=== PATIENT | female | born 1950 | race African-American/Black ===

== ENCOUNTER 2023-12-18 10:14 | Inpatient (IN) | payer MEDICARE, BC ==
[~2023-12-18] VITALS: Ht 162.6 cm; Wt 52.7 kg
[2023-12-18 10:19] VITALS: O2SAT 99
[2023-12-18 10:47] LABS: BASOPHILS % 0.5 % (0.0-2.0); DIFFERENTIAL COMMENT 0; EOSINOPHILS % 1.2 % (0.0-5.0); HEMATOCRIT. 36.2 % (36.0-48.0); HEMOGLOBIN. 11.9 g/dL (12.0-16.0); MEAN CORPUSCULAR HEMOGLOBIN 25.8 pg (28.0-32.0); MEAN PLATELET VOLUME 8.7 fl (7.4-10.4); MONOCYTES % 6.3 % (2.0-8.0); PLATELET 259 x1000/uL (130-400); RED BLOOD CELL COUNT 4.64 mill/uL (4.2-5.4); RED CELL DISTRIBUTION WIDTH 13.7 % (11.6-14.6); WHITE BLOOD COUNT 7.2 x1000/uL (4.5-11.0)
[2023-12-18 11:17] LABS: ALANINE AMINOTRANSFERASE < 7 IU/L (10-49); ALBUMIN 4.7 g/dL (3.2-4.8); ASPARTATE AMINOTRANSFERASE 9 IU/L (<34); BILIRUBIN TOTAL 0.3 mg/dL (0.1-1.0); CALCIUM 9.3 mg/dL (8.7-10.4); CARBON DIOXIDE 25 mEq/L (21-32); CHLORIDE 102 mEq/L (98-107); CREATININE 0.7 mg/dL (0.6-1.0); GLUCOSE 135 mg/dL (70-105); POTASSIUM 3.5 mEq/L (3.5-5.1); PROTEIN TOTAL 7.5 g/dL (6.0-8.3); SODIUM 135 mEq/L (136-145); UREA NITROGEN BLOOD 11 mg/dL (9-23)
[2023-12-18] MEDS: MORPHINE SULFATE 4 MG/ML CPJ (NOT FOR IM USE) IV ONE (11:18)
[2023-12-18 11:36] LABS: TROPONIN I HIGH SENSITIVITY < 4 ng/L (3.0-34)
[2023-12-18] MEDS ORDERED: ACETAMINOPHEN 325MG TABLET PO PRN (21:15)
[2023-12-18] MEDS ORDERED: DOCUSATE SODIUM 100MG CAPSULE PO PRN (21:15)
[2023-12-18] MEDS ORDERED: ONDANSETRON HCL 4MG/2ML INJ IV PRN (21:15)
[2023-12-18] MEDS ORDERED: DEXTROSE 50% WATER 50ML SYRINGE IV PRN (21:15)
[2023-12-18] MEDS ORDERED: GUAIFENESIN 200MG/10ML SUGAR FREE UDC PO PRN (21:15)
[2023-12-18] MEDS ORDERED: IPRATROPIUM/ALBUTEROL 0.5-3(2.5)MG/3ML NEB HHN PRN (21:15)
[2023-12-18] MEDS ORDERED: METF-414 PO (21:29)
[2023-12-18] MEDS ORDERED: AMLO5TAB88 PO (21:29)
[2023-12-18] MEDS ORDERED: OMEP40CA20 PO (21:29)
[2023-12-18 21:38] LABS: IRON 35 ug/dL (50-170); TOTAL IRON BINDING CAPACITY 185 ug/dl (250-425)
[2023-12-18 22:00] VITALS: BP 104/60; PULSE 80; RESP 20; TEMP 97.3
[2023-12-18 22:01] LABS: FERRITIN 95 ng/mL (10-291); FOLIC ACID (FOLATE) SERUM 16.42 ng/mL (>5.38); VITAMIN B12 SERUM 457 pg/mL (211-911)
[2023-12-19] VITALS: BP 162/81; PULSE 88; RESP 18; TEMP 99.5
[2023-12-19] MEDS: CLONIDINE 0.1MG TABLET PO PRN (00:34)
[2023-12-19] MEDS: AMLODIPINE 5MG TABLET PO SCH (00:35)
[2023-12-19 02:02] LABS: D-DIMER 0.32 mg/L FEU (<0.50); PROTHROMBIN TIME 11.3 sec (9.6-11.0)
[2023-12-19 02:20] LABS: TROPONIN I HIGH SENSITIVITY < 4 ng/L (3.0-34)
[2023-12-19 04:00] VITALS: BP 97/53; PULSE 70; RESP 18; TEMP 97.5
[2023-12-19] MEDS: BLOOD SUGAR DIAGNOSTIC STRIP TEST SCH (06:28)
[2023-12-19] MEDS: INSULIN LISPRO 100 UNITS/ML SUBCUT SCH (06:28)
[2023-12-19 07:41] LABS: BASOPHILS % 0.4 % (0.0-2.0); DIFFERENTIAL COMMENT 0; EOSINOPHILS % 1.9 % (0.0-5.0); HEMATOCRIT. 34.1 % (36.0-48.0); HEMOGLOBIN. 11.4 g/dL (12.0-16.0); LYMPHOCYTES % 29.2 % (20.0-50.0); MEAN CORPUSCULAR HGB CONC 33.6 g/dL (31.0-37.0); MEAN CORPUSCULAR VOLUME 77.4 fL (81.0-99.0); MEAN PLATELET VOLUME 9.2 fl (7.4-10.4); MONOCYTES % 7.2 % (2.0-8.0); NEUTROPHILS % 61.3 % (40.0-76.0); PLATELET 259 x1000/uL (130-400); RED CELL DISTRIBUTION WIDTH 13.5 % (11.6-14.6); WHITE BLOOD COUNT 6.6 x1000/uL (4.5-11.0)
[2023-12-19 08:00] VITALS: BP 106/57; PULSE 78; RESP 18; TEMP 98.7
[2023-12-19 08:38] LABS: TROPONIN I HIGH SENSITIVITY < 4 ng/L (3.0-34)
[2023-12-19] MEDS: MAGNESIUM/ALUMINUM HYDROXIDE/SIMETHICONE 30ML UDC PO PRN (08:39)
[2023-12-19 09:03] LABS: ALANINE AMINOTRANSFERASE < 7 IU/L (10-49); ALBUMIN 4.4 g/dL (3.2-4.8); ASPARTATE AMINOTRANSFERASE 10 IU/L (<34); BILIRUBIN TOTAL 0.4 mg/dL (0.1-1.0); CARBON DIOXIDE 28 mEq/L (21-32); CHLORIDE 101 mEq/L (98-107); CHOLESTEROL 150 mg/dL (<200); CREATININE 0.6 mg/dL (0.6-1.0); GLUCOSE 103 mg/dL (70-105); HDL CHOLESTEROL 42 mg/dL (>65); LDL CHOLESTEROL 92 mg/dL (5-100); POTASSIUM 3.9 mEq/L (3.5-5.1); PROTEIN TOTAL 6.9 g/dL (6.0-8.3); SODIUM 135 mEq/L (136-145); THYROID STIMULATING HORMONE 0.97 uIU/mL (0.55-4.78); TRIGLYCERIDE 72 mg/dL (0-150); UREA NITROGEN BLOOD 11 mg/dL (9-23)
[2023-12-19 12:05] VITALS: BP 112/54; PULSE 72; RESP 20; TEMP 97.6
[2023-12-19 16:00] VITALS: BP 123/62; PULSE 77; RESP 20; TEMP 98.8
[2023-12-19 20:00] VITALS: BP 126/69; PULSE 82; RESP 18; TEMP 97.8
[2023-12-19] MEDS: FAMOTIDINE 20MG TABLET PO SCH (21:06)
[2023-12-20] VITALS: BP 113/53; PULSE 73; RESP 19; TEMP 97.6
[2023-12-20 04:00] VITALS: BP 130/67; PULSE 75; RESP 18; TEMP 98.3
[2023-12-20 06:36] LABS: HEMATOCRIT 33.5 % (36.0-48.0); HEMOGLOBIN 11.2 g/dL (12.0-16.0)
[2023-12-20 07:07] LABS: CALCIUM 8.9 mg/dL (8.7-10.4); CARBON DIOXIDE 28 mEq/L (21-32); CHLORIDE 100 mEq/L (98-107); CREATININE 0.7 mg/dL (0.6-1.0); GLUCOSE 106 mg/dL (70-105); POTASSIUM 3.9 mEq/L (3.5-5.1); SODIUM 134 mEq/L (136-145); UREA NITROGEN BLOOD 13 mg/dL (9-23)
[2023-12-20 08:00] VITALS: BP 127/85; PULSE 69; RESP 18; TEMP 98.4
[2023-12-20] MEDS: FERROUS SULFATE 325MG TABLET PO SCH (08:43)
[2023-12-20] MEDS ORDERED: FERR325T6 PO (10:19)
[2023-12-20 10:25] VITALS: BP 127/85; PULSE 69; TEMP 98
== END 2023-12-20 11:50 | disposition home or self-care (01) | DRG 392 ==
LOC: ER 10:14 → 5WST 12:13 → EDBEDREQ 12:16 → EDBEDREQTM 12:16 → 7WST 23:49
PROVIDERS: ADMIT Internal Medicine; ATTEND Internal Medicine
DX: K21.9 Gastro-esophageal reflux disease without esophagitis (principal); R68.84 Jaw pain; D50.9 Iron deficiency anemia, unspecified; R07.89 Other chest pain; I10 Essential (primary) hypertension; E11.9 Type 2 diabetes mellitus without complications; Z79.84 Long term (current) use of oral hypoglycemic drugs; Z79.899 Other long term (current) drug therapy
CPT/HCPCS: 36415; 71045; 80048; 80053; 80061; 82607; 82728; 82746; 82962; 83036; 83540; 83550; 83880; 84439; 84443; 84484; 85014; 85018; 85025; 85379; 93005; 93306; 93970; 97162; 97165; 99285; A6261

== ENCOUNTER 2024-09-25 15:54 | Emergency (ER) | payer MEDICARE, BC ==
[~2024-09-25] VITALS: Ht 144.8 cm; Wt 50.0 kg
[~2024-09-25 15:54] MED LIST: AMLO5TAB88 PO; FERR325T6 PO; METF-414 PO; OMEP40CA20 PO
[2024-09-25] MEDS: ASPIRIN 325MG EC TABLET PO ONE (16:00)
[2024-09-25 16:05] VITALS: TEMP 98.1; O2SAT 97
[2024-09-25 18:48] LABS: CHLORIDE 105 mEq/L (98-107); POTASSIUM 3.2 mEq/L (3.5-5.1); SODIUM 143 mEq/L (136-145)
[2024-09-25 18:49] LABS: CALCIUM 8.8 mg/dL (8.7-10.4); CARBON DIOXIDE 28 mEq/L (21-32)
[2024-09-25 18:54] LABS: BASOPHILS % 0.4 % (0.0-2.0); CREATININE 0.8 mg/dL (0.6-1.0); DIFFERENTIAL COMMENT 0; EOSINOPHILS % 0.3 % (0.0-5.0); GLUCOSE 145 mg/dL (70-105); HEMATOCRIT. 35.9 % (36.0-48.0); HEMOGLOBIN. 11.6 g/dL (12.0-16.0); LYMPHOCYTES % 48.4 % (20.0-50.0); MEAN CORPUSCULAR HEMOGLOBIN 25.4 pg (28.0-32.0); MEAN CORPUSCULAR HGB CONC 32.4 g/dL (31.0-37.0); MEAN CORPUSCULAR VOLUME 78.2 fL (81.0-99.0); MEAN PLATELET VOLUME 8.7 fl (7.4-10.4); MONOCYTES % 7.8 % (2.0-8.0); NEUTROPHILS % 43.1 % (40.0-76.0); PLATELET 229 x1000/uL (130-400); RED BLOOD CELL COUNT 4.59 mill/uL (4.2-5.4); RED CELL DISTRIBUTION WIDTH 13.3 % (11.6-14.6); UREA NITROGEN BLOOD 15 mg/dL (9-23); WHITE BLOOD COUNT 3.6 x1000/uL (4.5-11.0)
[2024-09-25 18:56] LABS: ALANINE AMINOTRANSFERASE 9 IU/L (10-49); ALBUMIN 4.4 g/dL (3.2-4.8); ASPARTATE AMINOTRANSFERASE 12 IU/L (<34); BILIRUBIN DIRECT < 0.1 mg/dL (<=3.0); BILIRUBIN TOTAL 0.2 mg/dL (0.1-1.0); PROTEIN TOTAL 7.1 g/dL (6.0-8.3); TROPONIN I HIGH SENSITIVITY < 4 ng/L (3.0-34)
[2024-09-25] MEDS: POTASSIUM CHLORIDE 20MEQ/PACKET PO ONE (19:00)
[2024-09-25 20:00] VITALS: BP 153/76; PULSE 82; RESP 17; O2SAT 97
== END 2024-09-25 20:34 | disposition home or self-care (01) ==
LOC: ER 15:54
DX: R07.9 Chest pain, unspecified (principal); E87.6 Hypokalemia; I10 Essential (primary) hypertension; E11.9 Type 2 diabetes mellitus without complications; Z79.899 Other long term (current) drug therapy
CPT/HCPCS: 36415; 71045; 80048; 80076; 83880; 84484; 85025; 93005; 99285